=== PATIENT | female | born 2000 | race Two or more races ===

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

== ENCOUNTER 2020-06-03 12:59 | Emergency (ER) | payer OTHER ==
[~2020-06-03] VITALS: Ht 160 cm; Wt 59.1 kg
[2020-06-03 13:01] VITALS: BP 108/74
[2020-06-03] MEDS ORDERED: PERTUSS(ACELL),DIPH,TET VAC/PF 0.5 ML SYRINGE IM. ONE (13:30)
[2020-06-03] MEDS ORDERED: LIDOCAINE 1% 10 ML VIAL SQ ONE (13:30)
[2020-06-03] MEDS ORDERED: BACITRACIN 0.9 GM PACKET OINTMENT TP ONE (13:30)
[2020-06-03] MEDS ORDERED: POVIDONE-IODINE 10% 15 ML SOLUTION UD TP ONE (13:30)
== END 2020-06-03 14:53 | disposition home or self-care (01) ==
LOC: EMS 13:04
DX: S81.011A Laceration without foreign body, right knee, initial encounter (principal); F17.200 Nicotine dependence, unspecified, uncomplicated; F12.90 Cannabis use, unspecified, uncomplicated; W45.8XXA Other foreign body or object entering through skin, initial encounter; Y93.89 Activity, other specified; Y92.89 Other specified places as the place of occurrence of the external cause; Y99.8 Other external cause status
CPT/HCPCS: 12002; 90471; 90715; 99283; J3490

== ENCOUNTER 2023-02-27 01:38 | Emergency (ER) | payer OTHER ==
[~2023-02-27] VITALS: Ht 157.5 cm; Wt 56.0 kg
[2023-02-27 01:41] VITALS: TEMP 98.2
[2023-02-27 04:30] VITALS: BP 126/63; PULSE 81; RESP 18
== END 2023-02-27 06:39 | disposition left against medical advice (07) ==
LOC: EMS 01:38
DX: S19.9XXA Unspecified injury of neck, initial encounter (principal); R51.9 Headache, unspecified; R11.2 Nausea with vomiting, unspecified; X58.XXXA Exposure to other specified factors, initial encounter; Y93.89 Activity, other specified; Y92.89 Other specified places as the place of occurrence of the external cause; Y99.8 Other external cause status
CPT/HCPCS: 70450; 72125; 99284